=== PATIENT | male | born 1950 | race Asian ===

== ENCOUNTER 2017-05-29 05:56 | Day surgery (SDC) | payer MEDICARE, MEDICAID ==
[~2017-05-29] VITALS: Ht 180.3 cm; Wt 82.6 kg
[2017-05-29 07:09] LABS: BASOPHILS % 0.3 % (0.0-2.0); EOSINOPHILS % 1.7 % (0.0-5.0); HEMATOCRIT. 34.1 % (42.0-52.0); HEMOGLOBIN. 11.4 g/dL (14.0-18.0); LYMPHOCYTES % 35.4 % (20.0-50.0); MEAN CORPUSCULAR HEMOGLOBIN 29.3 pg (28.0-32.0); MEAN CORPUSCULAR VOLUME 87.9 fL (80.0-94.0); MEAN PLATELET VOLUME 8.7 fl (7.4-10.4); MONOCYTES % 6.6 % (2.0-8.0); PLATELET 211 x1000/uL (130-400); RED BLOOD CELL COUNT 3.88 mill/uL (4.7-6.1); RED CELL DISTRIBUTION WIDTH 15.3 % (11.6-14.6)
[2017-05-29] MEDS ORDERED: NORMAL SALINE 0.9% 10 ML SYR ONE (07:10)
[2017-05-29] MEDS ORDERED: BUPIVACAINE HCL/PF 0.5% (5MG/ML) 10ML ONE (07:10)
[2017-05-29] MEDS ORDERED: BETAMETHASONE ACET/BETAMET 30 MG/5 ML VIAL IM ONE (07:10)
[2017-05-29] MEDS ORDERED: BACITRACIN ZINC 15GM TUBE TOP ONE (07:10)
[2017-05-29] MEDS ORDERED: LIDOCAINE HCL 1% 20ML VIAL (Pyxis) INJ ONE (07:11)
[2017-05-29] MEDS ORDERED: BACITRACIN 50,000 UNITS/VIAL ONE (07:11)
[2017-05-29 07:18] LABS: INR 1.1; PROTHROMBIN TIME 11.5 sec (9.4-11.6)
[2017-05-29] MEDS ORDERED: DEXAMETHASONE 4MG/ML 1ML VIAL ONE ×2 (07:19→08:02)
[2017-05-29] MEDS ORDERED: MEPERIDINE HCL/PF 25MG/ML CPJ IV PRN (07:45)
[2017-05-29] MEDS ORDERED: LABETALOL HCL 20MG/4ML CARPUJECT IV PRN (07:45)
[2017-05-29] MEDS ORDERED: ONDANSETRON HCL 4MG/2ML VIAL IV PRN (07:45)
[2017-05-29] MEDS ORDERED: LACTATED RINGERS 1,000 ML IV SCH (07:45)
[2017-05-29] MEDS ORDERED: HYDROMORPHONE HCL/PF 2MG/ML CPJ IV PRN (07:45)
[2017-05-29] MEDS ORDERED: MIDAZOLAM HCL 2 MG/2 ML VIAL ONE (07:52)
[2017-05-29] MEDS ORDERED: FENTANYL CITRATE/PF 50MCG/ML 2ML VIAL ONE (07:52)
[2017-05-29] MEDS ORDERED: HYDRALAZINE 20MG/ML VIAL ONE (08:02)
[2017-05-29] MEDS ORDERED: VANCOMYCIN HCL 500 MG/VIAL ONE (08:03)
[2017-05-29] MEDS ORDERED: SODIUM CHLORIDE 0.9% 10ML VIAL ONE (08:10)
[2017-05-29] MEDS ORDERED: INSU3INS6 SUBCUT (09:02)
[2017-05-29] MEDS ORDERED: LEVO500T89 PO (09:02)
[2017-05-29] MEDS ORDERED: LOSA25TA12 PO (09:02)
== END 2017-05-29 11:00 | disposition home or self-care (01) ==
LOC: OR 05:56
PROVIDERS: ATTEND Podiatrist Foot & Ankle Surgery
DX: E11.69 Type 2 diabetes mellitus with other specified complication (principal); M86.672 Other chronic osteomyelitis, left ankle and foot; E11.52 Type 2 diabetes mellitus with diabetic peripheral angiopathy with gangrene; I10 Essential (primary) hypertension
CPT/HCPCS: 11044; 36415; 82962; 85025; 85610; 85730; 87070; 87075; 87077; 87186; 87205; 88304; 88311; A4216; J0360; J1100; J2250; J3010; J3370; J3490; J7120; J0702